=== PATIENT | female | born 1990 | race Caucasian/White ===

== ENCOUNTER 2020-05-13 12:18 | Emergency (ER) | payer BC ==
[2020-05-13 14:42] LABS: Urine Blood 3+ (Negative); Urine Glucose Negative (Negative); Urine Protein 2+ (Negative); Urine Specific Gravity 1.025 (1.005-1.030)
[2020-05-13 16:28] LABS: Absolute Lymphocytes (CBC) 2.3 K/uL (0.7-4.9); Basophils % 0.2 % (0-1.3); Hematocrit 40.9 % (36.0-45.0); Lymphocytes % 27.4 % (15.3-44.8); RBC Red Blood Cell Count 4.74 M/uL (3.86-4.86)
[2020-05-13 16:41] LABS: ALT/SGPT 21 U/L (12-78); AST/SGOT 15 U/L (15-37); Albumin 4.6 g/dL (3.4-5.0); Alkaline Phosphatase 50 U/L (45-117); BUN Blood Urea Nitrogen 8 mg/dL (7-18); Bicarbonate 26 mmol/L (21-32); Bilirubin Direct < 0.1 mg/dL (0-0.2); Bilirubin Total 0.4 mg/dL (0.2-1.0); Glucose Level 84 mg/dL (74-106); Lipase 110 U/L (73-393); Potassium 3.8 mmol/L (3.5-5.1); Protein, Total 8.1 g/dL (6.4-8.2); Sodium Level 140 mmol/L (136-145)
[2020-05-13] MEDS ORDERED: MORPHINE 4 MG/ML SYR ONE (16:41)
[2020-05-13] MEDS ORDERED: ONDANSETRON 4 MG/2 ML VIAL ONE (16:41)
--- NOTE | 2020-05-13 17:34 | RAD REPORT ---
EXAM DESCRIPTION: CTAbdomen Pelvis W Contrast - 05/13/2020 5:21 pm CLINICAL HISTORY: Abdominal pain. right flank pain COMPARISON: No comparisons TECHNIQUE: Biphasic CT imaging of the abdomen and pelvis was performed with 100 ml non-ionic IV cont rast. All CT scans are performed using dose optimization technique as appropriate and may include automated exposure control or mA/KV adjustment according to patient size. FINDINGS: The lung bases are clear. The liver, spleen, pancreas, adrenal glands and kidneys are within normal limits. No bowel obstruction, free air, free fluid or abscess. The appendix is not identified as a discrete structure, however, no secondary findings of appendicitis are identified. No evidence of significan t lymphadenopathy. No suspicious bony findings. IMPRESSION: No acute intra-abdominal or pelvic finding.
--- NOTE | 2020-05-13 19:07 | EDPHYS ---
Physician Documentation [facility] Name: Norberto Corona Age: 29 yrs Sex: Female : 1990 Arrival Date: 05/13/2020 Time: 12:21 Bed 16 Private MD: ED Physician William Cabrera HPI: 05/13 16:19 This 29 yrs old Female presents to ER via Ambulatory with complaints of jmm Urinary Problem, Fever, High Blood Pressure. 16:19 The patient presents with abdominal pain right flank. Onset: The symptoms/episode jmm began/occurred gradually, 3 day(s) ago. The symptoms radiate to the right flank. Associated signs and symptoms: Pertinent positives: nausea and vomiting, dysuria, hematuria. The symptoms are described as achy, sharp. Modifying factors: The symptoms are alleviated by nothing, the symptoms are aggravated by nothing. The patient has experienced similar episodes in the past. Patient states she thinks she may be having a kidney infection. . 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 - Social history:: Smoking status: Patient denies any tobacco usage or history of. ROS: 16:19 Constitutional: Positive for body aches, chills, fever. jmm 16:19 Abdomen/GI: Positive for abdominal pain, nausea and vomiting. 16:19 Back: Positive for flank pain, on the right. 16:19 All other systems are negative. Exam: 16:19 Constitutional: This is a well developed, well nourished patient who is awake, alert, jmm and in no acute distress. Head/Face: atraumatic. Eyes: EOMI, no conjunctival erythema appreciated ENT: Moist Mucus Membranes Neck: Trachea midline, Supple Chest/axilla: Normal chest wall appearance and motion. Cardiovascular: Regular rate and rhythm. No edema appreciated Respiratory: Normal respirations, no respiratory distress appreciated 16:19 Skin: General appearance color normal MS/ Extremity: Moves all extremities, no obvious deformities appreciated, no edema noted to the lower extremities Neuro: Awake and alert, normal gait Psych: Behavior is normal, Mood is normal, Patient is cooperative and pleasant 16:19 Abdomen/GI: Inspection: abdomen appears normal, Bowel sounds: normal, Palpation: soft, mild abdominal tenderness, in the right lower quadrant. 16:19 Back: CVA tenderness, that is moderate, is noted on the right. Vital Signs: 13:11 BP 154 / 110; Pulse 122; Resp 16 S; Temp 99.4(O); Pulse Ox 99% ; Weight 83.91 kg; iw Height 5 ft. 6 in. (167.64 cm); Pain 8/10; 16:05 BP 154 / 113; Pulse 102; Resp 17; Temp 98.6; Pulse Ox 100% ; jd3 17:26 BP 121 / 99; Pulse 85; Resp 17 S; Pulse Ox 97% on R/A; jd3 18:09 BP 121 / 92; Pulse 86; Resp 17 S; Pulse Ox 97% on R/A; jd3 13:11 Body Mass Index 29.86 (83.91 kg, 167.64 cm) iw MDM: 16:16 Patient medically screened. [facility] 19:05 Data reviewed: vital signs, nurses notes. Counseling: I had a detailed discussion with brigitte the patient and/or guardian regarding: the historical points, exam findings, and any diagnostic results supporting the discharge/admit diagnosis, radiology results, the need for outpatient follow up, to return to the emergency department if symptoms worsen or persist or if there are any questions or concerns that arise at home. ED course: Patient is alert and non toxic in appearance in the ED. patient is able to tolerate PO. Will follow up with her urologist for further evaluation. patient understood and agrees with the plan of care. . 05/13 14:42 Order name: Urine Dipstick-Ancillary; Complete Time: 15:59 [facility] 05/13 15:59 Order name: Basic Metabolic Panel [facility] 05/13 15:59 Order name: CBC with Diff; Complete Time: 16:42 [facility] 05/13 15:59 Order name: Hepatic Function; Complete Time: 16:42 [facility] 05/13 15:59 Order name: Lipase; Complete Time: 16:42 [facility] 05/13 16:00 Order name: Basic Metabolic Panel; Complete Time: 16:42 [facility] 05/13 15:59 Order name: IV Saline Lock; Complete Time: 16:17 [facility] 05/13 15:59 Order name: Labs collected and sent; Complete Time: 16:17 [facility] 05/13 16:17 Order name: CT Abd/Pelvis - IV Contrast Only; Complete Time: 17:52 [facility] Administered Medications: 16:29 Drug: morphine 4 mg Route: IVP; Site: left antecubital; jd3 17:29 Follow up: Response: No adverse reaction; RASS: Alert and Calm (0) jd3 16:29 Drug: Zofran (Ondansetron) 4 mg Route: IVP; Site: left antecubital; jd3 17:29 Follow up: Response: No adverse reaction jd3 Disposition: 05/13/20 19:06 Discharged to Home. Impression: Urinary tract infection, site not specified. - Condition is Stable. - Discharge Instructions: Urinary Tract Infection, Adult. - Prescriptions for Cephalexin 500 mg Oral Capsule - take 1 capsule by ORAL route every 12 hours for 10 days; 20 capsule. Ultracet 37.5- 325 mg Oral Tablet - take 1 tablet by ORAL route every 6 hours - for up to 5 days; do not exceed 8 tablets per day.; 12 tablet. Zofran ODT 4 mg Oral tablet,disintegrating - place 1 tablet by TRANSLINGUAL route every 4-6 hours; 20 tablet. - Medication Reconciliation Form, Thank You Letter, Antibiotic Education, Prescription Opioid Use form. - Follow up: Private Physician; When: 2 - 3 days; Reason: Recheck today's complaints, Continuance of care, Re-evaluation by your physician. Addendum: 05/15/2020 07:25 Co-signature as Attending Physician, William Cabrera MD I agree with the assessment and k dr plan of care. Signatures: Dispatcher [employer] William Heller MD MD kdr Mickail, Joel, PA PA jmm Williams, Irene, RN RN iw Bryson, James, RN RN jb4 Lele Lebron RN RN jd3 Corrections: (The following items were deleted from the chart) 05/13 19:29 19:06 05/13/2020 19:06 Discharged to Home. Impression: Urinary tract infection, site jb4 not specified. Condition is Stable. Forms are Medication Reconciliation Form, Thank You Letter, Antibiotic Education, Prescription Opioid Use. Follow up: Private Physician; When: 2 - 3 days; Reason: Recheck today's complaints, Continuance of care, Re-evaluation by your physician. brigitte
--- NOTE | 2020-05-13 19:07 | ER ---
Nurse's Notes [facility] Name: Norberto Corona Age: 29 yrs Sex: Female : 1990 Arrival Date: 05/13/2020 Time: 12:21 Bed 16 Private MD: Diagnosis: Urinary tract infection, site not specified Presentation: 05/13 13:11 Chief complaint: Patient states: thinks she has a kidney infection, started peeing iw blood, kidney is tender to touch, worse on right, was vomiting and had a fever, has hx of Lupus , symptoms started yesterday morning. Coronavirus screen: At this time, the client does not indicate any symptoms associated with coronavirus-19. Ebola Screen: Patient negative for fever greater than or equal to 101.5 degrees Fahrenheit, and additional compatible Ebola Virus Disease symptoms Patient denies exposure to infectious person. Patient denies travel to an Ebola-affected area in the 21 days before illness onset. No symptoms or risks identified at this time. Initial Sepsis Screen: Does the patient meet any 2 criteria? HR > 90 bpm. Does the patient have a suspected source of infection?. Risk Assessment: Do you want to hurt yourself or someone else? Patient reports no desire to harm self or others. Onset of symptoms was May 12, 2020. 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 - Social history:: Smoking status: Patient denies any tobacco usage or history of. Screenin:06 Abuse screen: Denies threats or abuse. Nutritional screening: No deficits noted. jd3 Tuberculosis screening: No symptoms or risk factors identified. Fall Risk Ambulatory Aid- None/Bed Rest/Nurse Assist (0 pts). Gait- Normal/Bed Rest/Wheelchair (0 pts) Mental Status- Oriented to own ability (0 pts). Total Thornton Fall Scale indicates No Risk (0-24 pts). Assessment: 16:04 General: Appears in no apparent distress. uncomfortable, Behavior is calm, cooperative, jd3 appropriate for age. Pain: Complains of pain in right flank Quality of pain is described as sharp, shooting. Neuro: Level of Consciousness is awake, alert, obeys commands, Oriented to person, place, time, situation. Cardiovascular: Denies chest pain, Capillary refill < 3 seconds Patient's skin is warm and dry. Respiratory: Airway is patent Respiratory effort is even, unlabored, Respiratory pattern is regular, symmetrical, Denies cough, shortness of breath. GI: No signs and/or symptoms were reported involving the gastrointestinal system. : Reports blood in urine. history of bad UTI's and kidney infections. EENT: No signs and/or symptoms were reported regarding the EENT system. Derm: Skin is intact, Skin is dry, Skin is normal, Skin temperature is warm. Musculoskeletal: Circulation, motion, and sensation intact. Range of motion: intact in all extremities. 17:25 Reassessment: Patient appears in no apparent distress at this time. No changes from jd3 previously documented assessment. Patient and/or family updated on plan of care and expected duration. Pain level reassessed. Patient is alert, oriented x 3, equal unlabored respirations, skin warm/dry/pink. 18:06 Reassessment: Patient appears in no apparent distress at this time. Patient and/or jd3 family updated on plan of care and expected duration. Pain level reassessed. Patient is alert, oriented x 3, equal unlabored respirations, skin warm/dry/pink. awaiting results Patient states feeling better. 19:28 Reassessment: Patient appears in no apparent distress at this time. Patient and/or jb4 family updated on plan of care and expected duration. Pain level reassessed. Patient is alert, oriented x 3, equal unlabored respirations, skin warm/dry/pink. Vital Signs: 13:11 BP 154 / 110; Pulse 122; Resp 16 S; Temp 99.4(O); Pulse Ox 99% ; Weight 83.91 kg; iw Height 5 ft. 6 in. (167.64 cm); Pain 8/10; 16:05 BP 154 / 113; Pulse 102; Resp 17; Temp 98.6; Pulse Ox 100% ; jd3 17:26 BP 121 / 99; Pulse 85; Resp 17 S; Pulse Ox 97% on R/A; jd3 18:09 BP 121 / 92; Pulse 86; Resp 17 S; Pulse Ox 97% on R/A; jd3 13:11 Body Mass Index 29.86 (83.91 kg, 167.64 cm) ED Course: 12:21 Patient arrived in ED. as 13:13 Triage completed. iw 15:59 Kam Amor PA is PHCP. m 15:59 William Cabrera MD is Attending Physician. [facility] 16:03 Lele Lebron RN is Primary Nurse. jd3 16:03 Arm band placed on. jd3 16:06 Patient has correct armband on for positive identification. Placed in gown. Bed in low jd3 position. Call light in reach. Side rails up X 1. Pulse ox on. NIBP on. 16:13 Initial lab(s) drawn, by me, sent to lab. Inserted saline lock: 20 gauge in left ca1 antecubital area, using aseptic technique. Blood collected. 17:20 CT Abd/Pelvis - IV Contrast Only In Process Unspecified. EDMS 19:28 No provider procedures requiring assistance completed. IV discontinued, intact, jb4 bleeding controlled, No redness/swelling at site. Pressure dressing applied. Administered Medications: 16:29 Drug: morphine 4 mg Route: IVP; Site: left antecubital; jd3 17:29 Follow up: Response: No adverse reaction; RASS: Alert and Calm (0) jd3 16:29 Drug: Zofran (Ondansetron) 4 mg Route: IVP; Site: left antecubital; jd3 17:29 Follow up: Response: No adverse reaction j Outcome: 19:06 Discharge ordered by . [facility] 19:28 Discharged to home ambulatory. jb4 19:28 Condition: stable 19:28 Discharge instructions given to patient, Instructed on discharge instructions, follow up and referral plans. medication usage, Demonstrated understanding of instructions, follow-up care, medications, Prescriptions given X 3. 19:29 Patient left the ED. jb4 Signatures: Dispatcher [employer] EDMS Kam Amor PA PA jmm Arun, Mame as Adonis, Brea, RN RN iw Gavin Castillo, RN RN jb4 Lele Lebron RN RN jd3 Annabelle Virgen RN RN ca1 Corrections: (The following items were deleted from the chart) 13:14 13:11 Pulse 133bpm; Resp 16bpm; Spontaneous; Pulse Ox 99%; Temp 97.4F Temporal; 83.91 iw kg; Height 5 ft. 6 in.; BMI: 29.8; Pain 8/10; iw 13:18 13:11 BP 154 / 110; Pulse 140bpm; Resp 16bpm; Spontaneous; Pulse Ox 99%; Temp 97.4F iw Temporal; 83.91 kg; Height 5 ft. 6 in.; BMI: 29.8; Pain 8/10; iw
[2020-05-14 06:04] VITALS: TEMP 98.6
[2020-05-14 06:05] VITALS: O2SAT 97
[2020-05-14 06:06] VITALS: BP 121/92
== END 2020-05-13 19:29 | disposition home or self-care (01) ==
LOC: ER 12:18
DX: N39.0 Urinary tract infection, site not specified (principal); I10 Essential (primary) hypertension; Z88.2 Allergy status to sulfonamides; Z88.3 Allergy status to other anti-infective agents; Z88.6 Allergy status to analgesic agent
CPT/HCPCS: 85025; 80048; 36415; 80076; 81003; 83690; 74177; 96375; 96374; 99284; Q9967; J2405